=== PATIENT | male | born 1970 | race African-American/Black ===

== ENCOUNTER 2023-09-27 12:07 | Emergency (ER) | payer BC ==
[2023-09-27 12:24] VITALS: BP 157/99; PULSE 86; RESP 19; TEMP 98.3; BMI 25.1
[2023-09-27 12:56] LABS: VENOUS BASE EXCESS 4.8 mmol/L (-2-2); VENOUS O2 SATURATION 67.8 % (70-80); VENOUS PH 7.296 (7.310-7.410)
[2023-09-27 12:58] LABS: BASO % 0.9 % (0-2.0); EOS % 0.4 % (0-4.5); HEMATOCRIT 50.6 % (35.4-49); HEMOGLOBIN 16.9 GM/dL (11.7-16.9); MCH 32.4 pg (25.7-33.7); MCHC 33.4 g/dl (32.0-35.9); MEAN CELL VOLUME 97.2 fl (80-96); MEAN PLT VOLUME 7.5 fl (7.5-11.1); MONO % 10.6 % (3.8-10.2); NEUT % 66.1 % (42.8-82.8); PLATELET COUNT 198 10^3/uL (134-434); RBC 5.21 M/mm3 (4.00-5.60); RDW 14.1 % (11.9-15.9); WHITE BLOOD COUNT 8.1 K/mm3 (4.0-10.0)
[2023-09-27 12:59] LABS: VENOUS PCO2 72.9 mmHg (38-52)
[2023-09-27 13:05] LABS: INR 1.06 (0.83-1.09); PROTHROMBIN TIME (PATIENT) 12.3 SEC (9.7-13.0)
[2023-09-27 13:07] LABS: ACTIVATED PTT 34.4 SECONDS (25.2-36.5)
[2023-09-27 13:23] LABS: POTASSIUM 4.3 mmol/L (3.5-5.1)
[2023-09-27 13:27] LABS: ALBUMIN 4.3 g/dl (3.4-5.0); CALCIUM 9.9 mg/dL (8.5-10.1)
[2023-09-27 13:28] LABS: BLOOD UREA NITROGEN 9.4 mg/dL (7-18)
[2023-09-27 13:30] LABS: CREATININE 0.9 mg/dL (0.55-1.3)
[2023-09-27 13:32] LABS: BILIRUBIN,TOTAL 0.6 mg/dL (0.2-1)
[2023-09-27] MEDS ORDERED: methylPREDNISolone NA SUCC 125 MG/2 ML VIAL IVPB ONE (14:47)
[2023-09-27] MEDS ORDERED: ALBUTEROL SO4 2.5/IPRATROPIUM 0.5 INH SOL 3 ML VIAL.NEB. NEB SCH (15:00)
== END 2023-09-27 15:35 | disposition left against medical advice (07) ==
LOC: JER 12:07
DX: R09.02 Hypoxemia (principal); Z20.822 Contact with and (suspected) exposure to COVID-19
CPT/HCPCS: 0241U-QW; 36415; 71046-TC-FY; 80053; 82803; 84484; 85025; 85379; 85610; 85730; 93005; 93010; 99285-25

== ENCOUNTER 2024-02-10 14:10 | Inpatient (IN) | payer BC ==
[2024-02-10 15:34] LABS: BASO % 0.9 % (0-2.0); EOS % 1.4 % (0-4.5); HEMATOCRIT 53.3 % (35.4-49); HEMOGLOBIN 17.3 GM/dL (11.7-16.9); LYMPH % 19.7 % (8-40); MCH 31.7 pg (25.7-33.7); MCHC 32.4 g/dl (32.0-35.9); MEAN CELL VOLUME 97.9 fl (80-96); MEAN PLT VOLUME 7.8 fl (7.5-11.1); MONO % 12.4 % (3.8-10.2); NEUT % 65.6 % (42.8-82.8); PLATELET COUNT 236 10^3/uL (134-434); RBC 5.44 M/mm3 (4.00-5.60); WHITE BLOOD COUNT 6.3 K/mm3 (4.0-10.0)
[2024-02-10 15:42] LABS: INR 1.14 (0.83-1.09); PROTHROMBIN TIME (PATIENT) 13.1 SEC (9.7-13.0); VENOUS BASE EXCESS 7.7 mmol/L (-2-2); VENOUS O2 SATURATION 49.1 % (70-80); VENOUS PH 7.248 (7.310-7.410)
[2024-02-10 15:45] LABS: ACTIVATED PTT 34.3 SECONDS (25.2-36.5)
[2024-02-10 15:50] LABS: VENOUS PCO2 94.7 mmHg (38-52)
[2024-02-10 15:56] LABS: POTASSIUM 4.5 mmol/L (3.5-5.1)
[2024-02-10 15:59] LABS: ALBUMIN 3.7 g/dl (3.4-5.0); BLOOD UREA NITROGEN 8.9 mg/dL (7-18)
[2024-02-10 16:02] LABS: CREATININE 0.8 mg/dL (0.55-1.3)
[2024-02-10 16:04] LABS: BILIRUBIN,TOTAL 0.8 mg/dL (0.2-1); TOT PROT 6.5 g/dl (6.4-8.2)
[2024-02-10] MEDS ORDERED: ALBUTEROL SO4 2.5/IPRATROPIUM 0.5 INH SOL 3 ML VIAL.NEB. NEB ONE (16:18)
[2024-02-10] MEDS ORDERED: methylPREDNISolone NA SUCC 125 MG/2 ML VIAL ONE (16:19)
[2024-02-10] MEDS: ALBUTEROL SO4 2.5/IPRATROPIUM 0.5 INH SOL 3 ML VIAL.NEB. NEB ONE (16:24)
[2024-02-10] MEDS: methylPREDNISolone NA SUCC 125 MG/2 ML VIAL IVPB ONE (16:24)
[2024-02-10 20:41] VITALS: BMI 24.9
[2024-02-10] MEDS: ALBUTEROL SO4 2.5/IPRATROPIUM 0.5 INH SOL 3 ML VIAL.NEB. NEB SCH (20:42)
[2024-02-11 07:28] LABS: BASO % 0.2 % (0-2.0); HEMATOCRIT 53.3 % (35.4-49); LYMPH % 7.3 % (8-40); MEAN CELL VOLUME 100.2 fl (80-96); MEAN PLT VOLUME 8.4 fl (7.5-11.1); MONO % 6.1 % (3.8-10.2); NEUT % 86.4 % (42.8-82.8); PLATELET COUNT 234 10^3/uL (134-434); RBC 5.32 M/mm3 (4.00-5.60); RDW 13.8 % (11.9-15.9); WHITE BLOOD COUNT 6.1 K/mm3 (4.0-10.0)
[2024-02-11 07:46] LABS: POTASSIUM 4.9 mmol/L (3.5-5.1)
[2024-02-11 07:59] LABS: BLOOD UREA NITROGEN 9.5 mg/dL (7-18)
[2024-02-11 08:02] LABS: CREATININE 0.7 mg/dL (0.55-1.3)
[2024-02-11] MEDS: predniSONE 20 MG TABLET (UD) PO SCH (09:47)
[2024-02-11] MEDS ORDERED: ACETAMINOPHEN 325 MG TABLET (FP) PO PRN (17:09)
[2024-02-12] MEDS ORDERED: ALBUTEROL SO4 2.5/IPRATROPIUM 0.5 INH SOL 3 ML VIAL.NEB. NEB PRN (01:00)
[2024-02-12 06:24] VITALS: RESP 18
[2024-02-12 07:37] LABS: POTASSIUM 4.1 mmol/L (3.5-5.1)
[2024-02-12 07:54] LABS: CALCIUM 8.8 mg/dL (8.5-10.1)
[2024-02-12 07:55] LABS: ALBUMIN 3.4 g/dl (3.4-5.0); BLOOD UREA NITROGEN 8.8 mg/dL (7-18); MAGNESIUM 1.8 mg/dL (1.8-2.4)
[2024-02-12 07:57] LABS: CREATININE 0.7 mg/dL (0.55-1.3)
[2024-02-12 07:59] LABS: BILIRUBIN,TOTAL 0.6 mg/dL (0.2-1); TOT PROT 6.2 g/dl (6.4-8.2)
[2024-02-12 08:22] LABS: HEMATOCRIT 52.6 % (35.4-49); HEMOGLOBIN 16.8 GM/dL (11.7-16.9); MCH 31.6 pg (25.7-33.7); MEAN CELL VOLUME 98.8 fl (80-96); MEAN PLT VOLUME 8.6 fl (7.5-11.1); PLATELET COUNT 234 10^3/uL (134-434); RBC 5.32 M/mm3 (4.00-5.60); RDW 13.9 % (11.9-15.9); WHITE BLOOD COUNT 10.8 K/mm3 (4.0-10.0)
[2024-02-12] MEDS: NICOTINE 14 MG/24 HOURS TOPICAL PATCH TD SCH (09:34)
[2024-02-12] MEDS: ENOXAPARIN NA (PORCINE) 40 MG/0.4 ML DISP.SYRIN SQ SCH (09:34)
[2024-02-12] MEDS: POLYETHYLENE GLYCOL (HEALTHYLAX) 3350 17 GM PACKET PO SCH (09:34)
[2024-02-12] MEDS: methylPREDNISolone NA SUCC 40 MG/1 ML VIAL IVPUSH SCH (09:34)
[2024-02-12 11:30] LABS: ARTERIAL BLD GAS O2 SATURATION 88.3 % (95-98); ARTERIAL BLOOD GAS BASE EXCESS 8.5 mmol/L (-2-2); ARTERIAL BLOOD GAS PO2 59.7 mmHg (80-100); ARTERIAL BLOOD GAS pH 7.338 (7.350-7.450)
[2024-02-12 11:37] LABS: ALLENS TEST POSITIVE
[2024-02-12 15:12] VITALS: PULSE 87; TEMP 98.1
[2024-02-12] MEDS ORDERED: ALBUTEROL SO4 0.083% IH SOL 2.5 MG/3 ML VIAL.NEB. NEB PRN (15:57)
[2024-02-12] MEDS ORDERED: FLUTICASONE/UMECLIDIN/VILANTER(100-62.5-25 TRELEGY ELLIPTA) INAHLER IH SCH (16:00)
[2024-02-12 16:19] VITALS: BP 160/92
== END 2024-02-12 16:10 | disposition left against medical advice (07) | DRG 202 ==
LOC: JER 14:10 → JERBED 16:56 → UNDOADMOB 16:56 → INTOOBSV 16:56 → JERBED 18:25 → OBSVTOIN 18:31 → J4W 19:01
PROVIDERS: ADMIT Internal Medicine; ATTEND Internal Medicine
DX: J45.901 Unspecified asthma with (acute) exacerbation (principal); J96.01 Acute respiratory failure with hypoxia; J96.22 Acute and chronic respiratory failure with hypercapnia; J44.1 Chronic obstructive pulmonary disease with (acute) exacerbation; D75.1 Secondary polycythemia; F17.200 Nicotine dependence, unspecified, uncomplicated
CPT/HCPCS: 0241U-QW; 36415; 36600; 71046-TC-FY; 71250-TC; 80048; 80053; 82803; 83735; 84100; 84484; 85025; 85027; 85610; 85730; 93005; 93010; 94640; 94660; 97116-GP; 97161-GP; 99285-25; G0378